=== PATIENT | male | born 1975 | race African-American/Black ===

== ENCOUNTER 2025-05-18 08:08 | Emergency (ER) | payer MEDICAID, OTHER ==
[~2025-05-18] VITALS: Ht 182.9 cm; Wt 95.0 kg
[2025-05-18 08:12] VITALS: TEMP 97.9; O2SAT 96
[2025-05-18 08:57] LABS: BASOPHILS % 0.2 % (0.0-2.0); EOSINOPHILS % 0.6 % (0.0-5.0); HEMATOCRIT. 43.9 % (42.0-52.0); HEMOGLOBIN. 15.0 g/dL (14.0-18.0); LYMPHOCYTES % 24.2 % (20.0-50.0); MEAN PLATELET VOLUME 7.7 fl (7.4-10.4); MONOCYTES % 6.1 % (2.0-8.0); NEUTROPHILS % 68.9 % (40.0-76.0); PLATELET 260 x1000/uL (130-400); RED BLOOD CELL COUNT 5.08 mill/uL (4.7-6.1); RED CELL DISTRIBUTION WIDTH 13.0 % (11.6-14.6)
[2025-05-18 09:12] LABS: CREATININE 1.6 mg/dL (0.6-1.3)
[2025-05-18 09:13] LABS: UREA NITROGEN BLOOD 15.0 mg/dL (9-23)
[2025-05-18] MEDS: FAMOTIDINE 20MG/2ML VIAL IV ONE (09:42)
[2025-05-18] MEDS: METHYLPREDNISOLONE SOD SUCC 125MG/2ML (ACT-O-VIAL) IV ONE (09:43)
[2025-05-18] MEDS ORDERED: EPIN0.3P3 IM (11:04)
[2025-05-18] MEDS ORDERED: P50 PO (11:04)
[2025-05-18] MEDS ORDERED: DIPH50CA42 PO (11:04)
[2025-05-18 11:23] VITALS: BP 112/56; PULSE 66; RESP 20; O2SAT 98
== END 2025-05-18 11:34 | disposition home or self-care (01) ==
LOC: ER 08:08
DX: L50.9 Urticaria, unspecified (principal); Z79.52 Long term (current) use of systemic steroids; Z79.899 Other long term (current) drug therapy
CPT/HCPCS: 99284; 96374; 71045; 96375; 80048; 85025; 36415; J2919; J1308